=== PATIENT | male | born 1950 | race Caucasian/White ===

== ENCOUNTER 2024-04-01 06:50 | Emergency (ER) | payer MEDICARE ==
[2024-04-01 06:56] VITALS: TEMP 99.7
[2024-04-01] MEDS ORDERED: CARDIZEM DRIP 100 MG/100 ML D5W 100 ML IV PRN (07:25)
[2024-04-01] MEDS ORDERED: TYLENOL 325 MG ONE (07:57)
[2024-04-01] MEDS ORDERED: LOPRESSOR INJECTION IV ONE (07:57)
[2024-04-01] MEDS: LOPRESSOR INJECTION IV ONE (07:58)
[2024-04-01] MEDS: TYLENOL 325 MG PO ONE (07:58)
--- NOTE | 2024-04-01 08:03 | ERPHSYRPT ---
- History of Present Illness Time Seen by Provider: 04/01/24 07:00 Source: patient, EMS Exam Limitations: no limitations Patient Subjective Stated Complaint: shortness of breath Triage Nursing Assessment: Pt brought in by EMS, pt alert and oriented x4. Pt brought in for sob which began around 5:30 am. Pt is sitting upright in the bed and denies any sob at this time. Lungs clear, heart tones irreg, 1+ pitting edema to bilat lower ext. Pt is currently only 2L n/c but does not wear O2 at home. Pt denies any cough. Physician History: This is a 73-year-old white male patient has a history of atrial fibrillation and arrives by paramedics because of shortness of breath the patient experienced sometime between 5 AM and 6 AM this morning. He denies chest pain. He denies abdominal pain he does not have a cough. He has not measured fever. He said no nausea vomiting or diarrhea symptoms. Patient has not taken his medication this morning. Patient is on Eliquis and metoprolol to help treat his atrial fibrillation. The paramedics brought him into the emergency department. When they arrived at the scene his heart rate was in the 160 bpm range. Patient received Cardizem 20 mg intravenously. On arrival to the emergency department his shortness of breath had resolved and his heart rate was in the low 100 to 105 bpm range. His room air oxygen saturation level was 93 to 95%. Patient has chronic swelling in his feet and ankles. Timing/Duration: today Activities at Onset: none Quality: other (No chest pain) Severity of Pain-Max: none Severity of Pain-Current: none Modifying Factors: Improves With: nothing. Worsens With: coughing, exertion Nitro Today/Relief: no nitro taken today Aspirin Treatment Today: no aspirin today Associated Symptoms: shortness of breath, No nausea, No vomiting, No abdominal pain, No cough, No chest pain, No fever Allergies/Adverse Reactions: sulfamethoxazole [From Bactrim] Allergy (Severe, Verified 04/01/24 07:09) Vomiting trimethoprim [From Bactrim] Allergy (Severe, Verified 04/01/24 07:09) Vomiting Home Medications: Apixaban [Eliquis] 5 mg PO BID 04/01/24 [History] Aspirin EC 81 mg [Ecotrin 81 mg] 1 tab PO DAILY 04/01/24 [History] Hydrocodone/Acetaminophen [[place] 10-325 mg] 1 tab PO TID PRN PRN 04/01/24 [History] Sildenafil Citrate [Viagra] 100 mg PO DAILY PRN PRN 04/01/24 [History] lisinopriL [Lisinopril] 1 tab PO DAILY 04/01/24 [History] Hx Tetanus, Diphtheria Vaccination/Date Given: Yes Hx Influenza Vaccination/Date Given: Yes Hx Pneumococcal Vaccination/Date Given: Yes Travel Risk - International Travel Have you traveled outside of the country in past 3 weeks: No - Emerging Infectious Disease Are you exhibiting symptoms associated with any current EIDs: Yes Symptoms: Shortness of Breath - Review of Systems Constitutional: No Symptoms Eyes: No Symptoms Ears, Nose, & Throat: No Symptoms Respiratory: Dyspnea Cardiac: No Symptoms Abdominal/Gastrointestinal: No Symptoms Genitourinary Symptoms: No Symptoms Musculoskeletal: No Symptoms Skin: No Symptoms Neurological: No Symptoms Psychological: No Symptoms Endocrine: No Symptoms Hematologic/Lymphatic: No Symptoms Immunological/Allergic: No Symptoms All Other Systems: Reviewed and Negative - Past Medical History Pertinent Past Medical History: Yes Neurological History: No Pertinent History ENT History: Cataracts Cardiac History: Arrhythmia, Hypertension Respiratory History: No Pertinent History Endocrine Medical History: No Pertinent History Musculoskeletal History: Fractures GI Medical History: No Pertinent History History: Other Psycho-Social History: No Pertinent History Male Reproductive Disorders: No Pertinent History Other Medical History: kidney stones - Past Surgical History Past Surgical History: Yes Neuro Surgical History: No Pertinent History Cardiac: No Pertinent History Gastrointestinal: No Pertinent History Genitourinary: Other Musculoskeletal: Joint Replacement Male Surgical History: No Pertinent History Other Surgical History: kidney stones removed, bilat knee replacements - Social History Smoking Status: Never smoker Exposure to second hand smoke: Yes Drug Use: none - Social Determinants of Health Will the patient participate in the screening: Yes Do you worry about a steady place to live?: No Do you have any problems with any of the following?: No known problems In the past 12 months,have you had to go without utilities?: No Transportation Issues: No Has anyone in your support network made you feel unsafe?: No Have you or anyone in your house had to go without enough: No - Nursing Vital Signs Nursing Vital Signs: Initial Vital Signs Temperature 99.7 F 04/01/24 06:53 Pulse Rate 90 04/01/24 06:53 Respiratory Rate 20 08/19/24 06:53 Blood Pressure 138/83 04/01/24 06:53 O2 Sat by Pulse Oximetry 94 L 04/01/24 06:53 Pain Scale Pain Intensity 0 - Physical Exam General Appearance: no apparent distress, alert, anxiety, obese Eye Exam: PERRL/EOMI, eyes nml inspection Ears, Nose, Throat Exam: normal ENT inspection, moist mucous membranes Neck Exam: normal inspection, non-tender, supple, full range of motion Respiratory Exam: normal breath sounds, lungs clear, respiratory distress, air way intact, No chest tenderness Cardiovascular Exam: tachycardia, irregular Gastrointestinal/Abdomen Exam: soft, normal bowel sounds, No tenderness Rectal Exam: not done Back Exam: normal inspection, normal range of motion, No CVA tenderness, No vertebral tenderness Extremity Exam: normal inspection, normal range of motion, pelvis stable Neurologic Exam: alert, oriented x 3, cooperative, director machine II-XII nml as tested, sensation nml Skin Exam: normal color, warm, dry Lymphatic Exam: No adenopathy SpO2 Interpretation: borderline oxygenation SpO2: 93 - Course Nursing assessment & vital signs reviewed: Yes EKG Interpreted by Me: RATE (105), A-fib, Other (No acute ischemic changes on today's twelve-lead EKG. QTc is 437) Ordered Tests: Active Orders 24 hr Category Date Time Status EKG-ER Only STAT Care 04/01/24 07:25 Active IV Insertion STAT Care 04/01/24 07:25 Active Oxygen-ED Only Nasal Cannula 2 lpm Care 04/01/24 07:25 Active Pulse Oximetry (ED) STAT Care 04/01/24 07:25 Active CHEST 1 VIEW (PORTABLE) Stat Exams 04/01/24 07:25 Completed BLOOD CULTURE Stat Lab 04/01/24 07:48 Received CBC W DIFF Stat Lab 04/01/24 07:25 Completed CMP Stat Lab 04/01/24 07:53 Completed MAGNESIUM Stat Lab 04/01/24 07:53 Completed NT PRO BNPII Stat Lab 04/01/24 07:53 Completed TROPONIN Q4H Lab 04/01/24 07:53 Completed TROPONIN Q4H Lab 04/01/24 10:05 Completed TROPONIN Q4H Lab 04/01/24 15:30 Ordered UA W/RFX UR CULTURE Stat Lab 04/01/24 10:19 Ordered Medication Summary Generic Name Dose Route Start Last Admin Trade Name Mattie PRN Reason Stop Dose Admin Diltiazem HCl 100 mls @ 5 mls/hr 04/01/24 07:25 Cardizem Drip 100 Mg/100 Ml D5w IV 05/01/24 07:24 .Q20H PRN HEART RATE/ A-FIB Protocol 5 MG/HR Discontinued Medications Generic Name Dose Route Start Last Admin Trade Name Mattie PRN Reason Stop Dose Admin Acetaminophen 650 mg 04/01/24 07:50 04/01/24 07:58 Acetaminophen 325 Mg Tablet PO 04/01/24 07:51 650 mg STAT ONE Administration Acetaminophen Confirm 04/01/24 07:57 Acetaminophen 325 Mg Tablet Administered 04/01/24 07:58 Dose 650 mg .ROUTE .STK-MED ONE Metoprolol Tartrate 5 mg 04/01/24 07:50 04/01/24 07:58 Metoprolol Tartrate 5 Mg/5 Ml Vial IV 04/01/24 07:51 5 mg STAT ONE Administration Metoprolol Tartrate Confirm 04/01/24 07:57 Metoprolol Tartrate 5 Mg/5 Ml Vial Administered 04/01/24 07:58 Dose 5 mg IV .STK-MED ONE Lab/Rad Data: Laboratory Result Diagrams 04/01/24 07:25 04/01/24 07:53 Laboratory Results 04/01/24 04/01/24 04/01/24 Range/Units 10:05 07:53 07:53 WBC (4.23-9.07) x10^3/uL RBC (4.63-6.08) x10^6/uL Hgb (13.7-17.5) g/dL Hct (40.1-51.0) % MCV (79.0-92.2) fL MCH (25.7-32.2) pg MCHC (32.3-36.5) g/dL RDW (11.6-14.4) % Plt Count (163-337) x10^3/uL MPV (9.4-12.4) fL Gran % (34.0-67.9) % Immature Gran % (Auto) (0.001-0.429) % Nucleat RBC Rel Count (0.00-0.2) % Eos # (Auto) (0.04-0.54) x10^3/uL Immature Gran # (Auto) (0.001-0.031) x10^3u/L Absolute Lymphs (auto) (1.32-3.57) x10^3/uL Absolute Monos (auto) (0.30-0.82) x10^3/uL Absolute Nucleated RBC (0.00-0.012) x10^3u/L Lymphocytes % (21.8-53.1) % Monocytes % (5.3-12.2) % Eosinophils % (0.8-7.0) % Basophils % (0.2-1.2) % Absolute Granulocytes (1.78-5.38) x10^3/uL Basophils # (0.01-0.08) x10^3/uL Sodium (135-145) mmol/L Potassium (3.5-5.1) mmol/L Chloride (98-107) mmol/L Carbon Dioxide (22-30) mmol/L Anion Gap (5-15) MEQ/L BUN (9-20) mg/dL Creatinine (0.66-1.25) mg/dL Estimated GFR ML/MIN Glucose (74-106) mg/dL Calcium (8.4-10.2) mg/dL Magnesium (1.6-2.3) mg/dL Total Bilirubin (0.2-1.3) mg/dL AST (17-59) U/L ALT (0-50) U/L Alkaline Phosphatase (38-126) U/L Troponin I 0.175 H* 0.051 H* (0.000-0.033) ng/mL NT-Pro-B Natriuret Pep 1020 (<300) pg/mL Serum Total Protein (6.3-8.2) g/dL Albumin (3.5-5.0) g/dL Influenza Type A Ag NEGATIVE (NEGATIVE) Influenza Type B Ag NEGATIVE (NEGATIVE) RSV (PCR) NEGATIVE (NEGATIVE) SARS-CoV-2 (PCR) NEGATIVE (NEGATIVE) Slides for Path Review 04/01/24 04/01/24 Range/Units 07:53 07:25 WBC 17.8 H (4.23-9.07) x10^3/uL RBC 5.75 (4.63-6.08) x10^6/uL Hgb 18.2 H (13.7-17.5) g/dL Hct 53.6 H (40.1-51.0) % MCV 93.2 H (79.0-92.2) fL MCH 31.7 (25.7-32.2) pg MCHC 34.0 (32.3-36.5) g/dL RDW 13.6 (11.6-14.4) % Plt Count 135 L (163-337) x10^3/uL MPV 11.1 (9.4-12.4) fL Gran % 89.9 H (34.0-67.9) % Immature Gran % (Auto) 0.7 H (0.001-0.429) % Nucleat RBC Rel Count 0.0 (0.00-0.2) % Eos # (Auto) 0.05 (0.04-0.54) x10^3/uL Immature Gran # (Auto) 0.12 H (0.001-0.031) x10^3u/L Absolute Lymphs (auto) 0.56 L (1.32-3.57) x10^3/uL Absolute Monos (auto) 0.96 H (0.30-0.82) x10^3/uL Absolute Nucleated RBC 0.00 (0.00-0.012) x10^3u/L Lymphocytes % 3.1 L (21.8-53.1) % Monocytes % 5.4 (5.3-12.2) % Eosinophils % 0.3 L (0.8-7.0) % Basophils % 0.6 (0.2-1.2) % Absolute Granulocytes 16.01 H (1.78-5.38) x10^3/uL Basophils # 0.11 H (0.01-0.08) x10^3/uL Sodium 138 (135-145) mmol/L Potassium 4.0 (3.5-5.1) mmol/L Chloride 108 H (98-107) mmol/L Carbon Dioxide 21 L (22-30) mmol/L Anion Gap 12.6 (5-15) MEQ/L BUN 16 (9-20) mg/dL Creatinine 0.90 (0.66-1.25) mg/dL Estimated GFR 90.2 ML/MIN Glucose 95 (74-106) mg/dL Calcium 11.3 H (8.4-10.2) mg/dL Magnesium 1.8 (1.6-2.3) mg/dL Total Bilirubin 2.30 H (0.2-1.3) mg/dL AST 34 (17-59) U/L ALT 29 (0-50) U/L Alkaline Phosphatase 104 (38-126) U/L Troponin I (0.000-0.033) ng/mL NT-Pro-B Natriuret Pep (<300) pg/mL Serum Total Protein 7.0 (6.3-8.2) g/dL Albumin 4.0 (3.5-5.0) g/dL Influenza Type A Ag (NEGATIVE) Influenza Type B Ag (NEGATIVE) RSV (PCR) (NEGATIVE) SARS-CoV-2 (PCR) (NEGATIVE) Slides for Path Review YES - Progress Progress: improved, re-examined Air Movement: good Progress Note: 04/01/24 08:12 My medical decision making and the assignment of moderate to high complexity of this patient's medical issue today is based on review of the patient's past medical history, review the patient's medication list, review the patient drug allergy list, history present illness and physical findings on examination. The workup in this patient includes placement of intravenous line, infusion of Cardizem drip, infusion of metoprolol, twelve-lead EKG, BNP, troponin level, chest x-ray, viral swabs, monotest, magnesium level. Differential diagnosis includes but is not limited to atrial fibrillation with RVR, electrolyte abnormalities, myocardial infarction, CHF exacerbation, pneumonia 04/01/24 09:21 Chest x-ray was interpreted by the radiologist and I reviewed the impression. The impression states cardiomegaly without focal infiltrate, consolidation or large effusion. 04/01/24 09:23 I interpreted the patient's laboratory data results. The patient has an elevat ed troponin which may be secondary to cardiac strain. He also has a leukocytosis without evidence of pneumonia on the chest x-ray. In addition, his viral swabs and strep swab are negative. 04/01/24 09:27 The second twelve-lead EKG performed on 04/01/2024 at 8:51 AM was interpreted by me. The patient has rate controlled atrial fibrillation with a heart rate of 73 bpm. Otherwise no other changes when compared to the twelve-lead EKG that was performed earlier today. 04/01/24 10:07 I discussed with this patient the options he has in terms of disposition. I feel that we or another facility should observe him for at least 24 hours to make sure that his atrial fibrillation continues to be rate controlled and the troponin stays the same or decreases. I did discuss the potential for staying here at our facility. We are checking a second troponin to determine if the troponin level increase or decrease. He is aware that it is possible that our hospitalist do not except the placement in observation here. I also discussed the option of signing out AGAINST MEDICAL ADVICE. We discussed the risks of recurrent atrial for with RVR, worsening shortness of breath and possible myocardial infarction and even if he is to leave AGAINST MEDICAL ADVICE and he has chosen to only accept placement or observation/admission into our facility. I will readdress the options with him again after the second troponin level returns. 04/01/24 11:14 The patient's second troponin tripled in value compared to the first one 2 hours prior. The patient still has no chest pain. His shortness of breath has resolved. He is refusing transfer to another facility. Our facility does not have cardiology. This was discussed with the patient. He wants to go home. He understands that there is risk of but not limited to worsening condition including chest pain, worsening shortness of breath, recurrent atrial fibrillation with RVR, myocardial infarction, . He is awake alert and oriented. He will sign the AGAINST MEDICAL ADVICE form. Blood Culture(s) Obtained: Yes Antibiotics given: Yes Counseled pt/family regarding: lab results, diagnosis, rad results Medical Desision Making - Diagnostic Testing Diagnostic test were ordered, analyzed, and reviewed by me: Yes Radiological Interpretation: Reviewed by me, Teleradiologist Report - Risk of complications The pt has a mod risk of morbidity or mortality based on: Need for prescription drug management - Departure Departure Disposition: AMA Clinical Impression: Leukocytosis, Atrial fibrillation with RVR, Elevated troponin Condition: Fair Critical Care Time: Yes Critical Care Time(excluding separately billable procedures): Critical 30-74 mins (45 minutes) Referrals: SUSANNA LORENZ [Primary Care Provider] - Follow up/PCP as directed Additional Instructions: Take all your medications as prescribed. Return to this emergency department or other emergency department if your symptoms worsen or you change your mind about being admitted or transferred to another facility. Call your primary care provider and stock broker today, 04/01/2024, to make arrangement for follow-up appointment for further evaluation management Prescriptions: Cefdinir 300 mg PO BID #[id number] cap
[2024-04-01 08:15] LABS: Absolute Neutrophil Ct (ANC) 16.01 x10^3/uL (1.78-5.38); BASOPHIL % 0.6 % (0.2-1.2); Basophil (Absolute #) 0.11 x10^3/uL (0.01-0.08); Eosinophil % 0.3 % (0.8-7.0); Eosinophil (Absolute #) 0.05 x10^3/uL (0.04-0.54); Hematocrit 53.6 % (40.1-51.0); Hemoglobin 18.2 g/dL (13.7-17.5); IMMATURE GRAN # 0.12 x10^3u/L (0.001-0.031); IMMATURE GRAN % 0.7 % (0.001-0.429); Lymphocyte (Absolute #) 0.56 x10^3/uL (1.32-3.57); Lymphocytes % 3.1 % (21.8-53.1); Mean Cell Volume 93.2 fL (79.0-92.2); Mean Corpuscular Hemoglobin 31.7 pg (25.7-32.2); Mean Platelet Volume 11.1 fL (9.4-12.4); Monocyte (Absolute #) 0.96 x10^3/uL (0.30-0.82); Monocytes % 5.4 % (5.3-12.2); Neutrophil % 89.9 % (34.0-67.9); Platelet Count 135 x10^3/uL (163-337); Red Blood Count 5.75 x10^6/uL (4.63-6.08); Red Cell Distribution Width 13.6 % (11.6-14.4); White Blood Count 17.8 x10^3/uL (4.23-9.07)
[2024-04-01 08:34] LABS: Slide Review 1 YES
[2024-04-01 08:35] LABS: ANION GAP 12.6 MEQ/L (5-15); BILIRUBIN,TOTAL 2.3 mg/dL (0.2-1.3); Calcium 11.3 mg/dL (8.4-10.2); Creatinine 1 0.9 mg/dL (0.66-1.25); EST GLOMERULAR FILTRATION RATE 90.2 ML/MIN; MAGNESIUM 1.8 mg/dL (1.6-2.3)
[2024-04-01 08:53] LABS: INFLUENZA A NEGATIVE (NEGATIVE); INFLUENZA B NEGATIVE (NEGATIVE); RESPIRATORY SYNCTIAL VIRUS NEGATIVE (NEGATIVE); SARS-CoV-2 Xpert Express NEGATIVE (NEGATIVE)
--- NOTE | 2024-04-01 08:54 | XRAY ---
Indication: Short of breath. Comparison: None Portable chest demonstrates cardiomegaly without focal infiltrate, consolidation, or large effusion. Bony thorax intact with osteopenia and mild degenerative changes.
[2024-04-01 09:06] LABS: TROPONIN 0.051 ng/mL (0.000-0.033)
[2024-04-01 11:01] VITALS: BP 133/79; PULSE 85; RESP 16
[2024-04-01 11:18] VITALS: O2SAT 93
[2024-04-01] MEDS: ELIQUIS 2.5 MG TABLET PO ONE (11:34)
== END 2024-04-01 11:41 | disposition left against medical advice (07) ==
LOC: ED 06:50
DX: I48.20 Chronic atrial fibrillation, unspecified (principal); D72.829 Elevated white blood cell count, unspecified; R79.89 Other specified abnormal findings of blood chemistry; R06.02 Shortness of breath; R60.0 Localized edema; Z79.01 Long term (current) use of anticoagulants
CPT/HCPCS: 0241U; 36000; 36415; 71045; 80053; 83735; 83880; 84484; 85025; 87040; 93005; 94760; 96374; 99284; 99291; A9270-GY